=== PATIENT | male | born 1965 | race Caucasian/White ===

== ENCOUNTER 2017-05-12 20:19 | Emergency (ER) | payer SELFPAY ==
[2017-05-12 20:31] VITALS: BP 134/86
[2017-05-12] MEDS ORDERED: LIDOCAINE 2% VISCOUS SOLN 20 ML UDCUP PO ONE (21:40)
--- NOTE | 2017-05-12 21:40 | ER Document Report ---
HPI - HPI Pain Level: 2 Notes: Patient is a 52-year-old male who presents ED complaining of dental pain to #10 , 11, and 121 week. Patient states that he has not noticed any obvious abscess or discharge. He is still eating and drinking without difficulties. Patient states that he has poor dentition, but does have medical coverage now and wants to seek a dentist. Patient states he does not have any trouble swallowing. Denies any headache, fever, head injury, neck pain, URI, sore throat, chest pain, palpitations, syncope, cough, shortness of breath, wheeze, dyspnea, abdominal pain, nausea/vomiting/diarrhea, dysuria, hematuria, or rash. - ROS Notes: REVIEW OF SYSTEMS: CONSTITUTIONAL : Denies fever, chills, or sweats. Denies recent illness. EENT: see hpi CARDIOVASCULAR: Denies chest pain. Denies palpitations or racing or irregular heart beat. Denies ankle edema. RESPIRATORY: Denies cough, cold, or chest congestion. Denies shortness of breath, difficulty breathing, or wheezing. GASTROINTESTINAL: Denies abdominal pain or distention. Denies nausea, vomiting , or diarrhea. GENITOURINARY: Denies difficulty urinating, painful urination, burning, frequency, blood in urine, or discharge. MUSCULOSKELETAL: Denies back or neck pain or stiffness. Denies joint pain or swelling. SKIN: Denies rash, lesions or sores. NEUROLOGICAL: Denies confusion or altered mental status. Denies passing out or loss of consciousness. Denies dizziness or lightheadedness. Denies headache. Denies weakness or paralysis or loss of use of either side. Denies problems with gait or speech. Denies sensory loss, numbness, or tingling. ALL OTHER SYSTEMS REVIEWED AND NEGATIVE. Dictation was performed using [employer] voice recognition software Past Medical History - Social History Smoking Status: Former Smoker Family History: Reviewed & Not Pertinent Patient has suicidal ideation: No Patient has homicidal ideation: No Renal/ Medical History: Denies: Hx Peritoneal Dialysis Vertical Provider Document - CONSTITUTIONAL Agree With Documented VS: Yes Notes: PHYSICAL EXAMINATION: GENERAL: Well-appearing, well-nourished and in no acute distress. HEAD: Atraumatic, normocephalic. EYES: Pupils equal round and reactive to light, extraocular movements intact, sclera anicteric, conjunctiva are normal. ENT: EAC clear b/l. TM's intact b/l without erythema, fluid, or perforation. Nares patent and without discharge. oropharynx clear without exudates. No tonsilar hypertrophy or erythema. Moist mucous membranes. No sinus tenderness. Uvula midline. No palatine shift. No tongue protrusion. No airway compromise. Mouth: Poor dentition. + decay and mild gingivitis. No obvious abscess or discharge noted. No facial swelling. + tenderness to tooth #10, 11, 12. NECK: Normal range of motion, supple without lymphadenopathy. No rigidity/ meningismus. LUNGS: Breath sounds clear to auscultation bilaterally and equal. No wheezes rales or rhonchi. HEART: Regular rate and rhythm without murmurs, rubs, gallops. NEUROLOGICAL: Cranial nerves grossly intact. Normal speech, normal gait. Normal sensory, motor exams PSYCH: Normal mood, normal affect. SKIN: Warm, Dry, normal turgor, no rashes or lesions noted. - INFECTION CONTROL TRAVEL OUTSIDE OF THE [place] IN LAST 30 DAYS: No - RESPIRATORY O2 Sat by Pulse Oximetry: 98 Course - Re-evaluation Re-evalutation: 05/12/17 21:38 She has an afebrile, well-hydrated, 52-year-old male who presents the ED with dental pain, nerve root etiology versus infection. Vitals are stable. PE is otherwise unremarkable. Low suspicion for any meningitis, sepsis, peritonsillar /pharyngeal abscess, respiratory compromise, Watson's, temporal arteritis, or other emergent systemic condition at this time. Patient is aware this condition can change from initial presentation and he needs to monitor symptoms closely. I will send him home with prescription for penicillin to take as directed as well as a list of dentists. Conservative measures otherwise for symptoms. Call to schedule an appointment with a dentist for further evaluation and management. Recheck with your PCM this week as well. Return to the ED with any worsening/concerning symptoms otherwise as reviewed in discharge. Patient is in agreement. - Vital Signs Vital signs: Temp Pulse Resp BP Pulse Ox 98.6 F 70 18 134/86 H 98 05/12/17 20:20 05/12/17 20:20 05/12/17 20:20 05/12/17 20:20 05/12/17 20:20 Discharge - Discharge Clinical Impression: Toothache Condition: Stable Disposition: HOME, SELF-CARE Instructions: Penicillin V K ([facility]), Toothache ([facility]), Dentist Additional Instructions: [place] and floss twice daily Maintain fluid intake Take antibiotics as directed Mouthwash, salt water gargles, peroxide rinse as needed Tylenol/ibuprofen as needed Recheck with PCM this week Call today/tomorrow and schedule an appointment with your dentist for further evaluation Return to the ED with any worsening symptoms and/or development of fever, headache, facial swelling, swelling of lips/tongue/throat, trouble swallowing, drooling, hoarseness, neck pain/stiffness, chest pain, palpitations, syncope, shortness of breath, trouble breathing, abdominal pain, n/v/d, numbness/tingling , or other worsening symptoms that are concerning to you. Prescriptions: Penicillin V Potassium [Penicillin Vk 500 mg Tablet] 500 mg PO BID #20 tablet Forms: Elevated Blood Pressure Referrals: [facility] [Provider Group] - Follow up as needed [facility] [Provider Group] - Follow up as needed
== END 2017-05-12 21:57 | disposition home or self-care (01) ==
LOC: ER 20:19
DX: K02.9 Dental caries, unspecified (principal); K05.10 Chronic gingivitis, plaque induced; K08.89 Other specified disorders of teeth and supporting structures; Z87.891 Personal history of nicotine dependence
CPT/HCPCS: 99282; J3490

== ENCOUNTER → 2019-07-24 | Outpatient (CLI) | payer OTHER ==
[2019-07-24 16:51] LABS: ABSOLUTE LYMPHOCYTES (AUTO) 1.8 10^3/uL (0.5-4.7); ABSOLUTE MONOCYTES (AUTO) 0.5 10^3/uL (0.1-1.4); ABSOLUTE NEUT (AUTO) 4.7 10^3/uL (1.7-8.2); BASOPHILS % (AUTO) 0.6 % (0-2); EOSINOPHILS % (AUTO) 0.5 % (0-6); HEMOGLOBIN 13.8 g/dL (13.5-17.0); LYMPHOCYTES % (AUTO) 24.7 % (13-45); MEAN CORPUSCULAR HEMOGLOBIN 29.8 pg (27.0-33.4); MEAN CORPUSCULAR HGB CONC 34.4 g/dL (32.0-36.0); MEAN CORPUSCULAR VOLUME 87 fl (80-97); MONOCYTES % (AUTO) 7.4 % (3-13); PLATELET COUNT 343 10^3/uL (150-450); RED BLOOD COUNT 4.61 10^6/uL (4.35-5.55); RED CELL DISTRIBUTION WIDTH 12.7 % (11.5-14.0); SEGMENTED NEUTROPHILS % (AUTO) 66.8 % (42-78); TOTAL CELLS COUNTED % (AUTO) 100 %; WHITE BLOOD COUNT 7.1 10^3/uL (4.0-10.5)
--- NOTE | 2019-07-24 16:54 | RADIOLOGY REPORT (SQ) ---
EXAM DESCRIPTION: CT SOFT TISSUE NECK WITH COMPLETED DATE/TIME: 07/24/2019 4:39 pm REASON FOR STUDY: LOCALIZED SWELLING, MASS AND LUMP, NECK (R22.1) R22.1 LOCALIZED SWELLING, MASS AN D LUMP, NECK COMPARISON: None. TECHNIQUE: Post IV contrasted scanning from skull base through lung apices with review of bone, soft tissue and lung windows. Reconstructed coronal and sagittal MPR images reviewed. All images stored on PACS. All CT scanners at this facility use dose modulation, iterative reconstruction, and/or weight based d osing when appropriate to reduce radiation dose to as low as reasonably achievable (ALARA). [facility]: Dose Right [facility]: CareDose [facility]: Dose Right [facility]: Teradose 4D [facility]: Flock CONTRAST TYPE AND DOSE: contrast/concentration: Isovue 350.00 mg/ml; Total Contrast Delivered: 75.0 ml; Total Saline Delivered: 33.9 ml RENAL FUNCTION: Creatinine 0.8 RADIATION DOSE: 20.7 mGy . LIMITATIONS: None. FINDINGS: SKULL BASE: Inferior brain unremarkable MAJOR SALIVARY GLANDS: No solid or cystic masses. No inflammatory changes. LYMPHADENOPATHY: Malignant adenopathy in the right neck at the level of the mandibular angle, level 2 . A 2.7 x 2.3 cm mixed cystic and solid lymph node is present on axial image 40, and a 2.5 x 2.3 cm lymph node is present on the right axial image 47 MUCOSAL MASSES OR ASYMMETRY: Asymmetric fullness and enhancement along the inferior right tonsillar f deborah, were a 1.4 x 1.6 cm mass is suspected on coronal image 54 and axial image 35. LARYNX/CORDS: No abnormal findings. VASCULAR STRUCTURES: The major vessels are patent. LUNG APICES: Clear. BONES: Posterior disc bulging at C5-6, with moderate left foraminal narrowing and mild central canal stenosis THYROID: Normal size. No masses. PARANASAL SINUSES: There is a mucocele in the right maxillary sinus with expansion of the sinus. Macario ypoid soft tissue occludes and widens the right maxillary outlet on coronal image 35. OTHER: No other significant finding. 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
[2019-07-24 17:16] LABS: ALBUMIN 3.7 g/dL (3.5-5.0); ALKALINE PHOSPHATASE 45 U/L (38-126); ANION GAP 6 (5-19); ASPARTATE AMINO TRANSFERASE 18 U/L (17-59); BILIRUBIN,TOTAL 0.4 mg/dL (0.2-1.3); BLOOD UREA NITROGEN 14 mg/dL (7-20); CALCIUM 8.9 mg/dL (8.4-10.2); CARBON DIOXIDE 30 mmol/L (22-30); CHLORIDE 100 mmol/L (98-107); CHOLESTEROL 179.53 mg/dL (0-200); GLUCOSE 64 mg/dL (75-110); POTASSIUM 4.1 mmol/L (3.6-5.0); TOTAL PROTEIN 6.5 g/dL (6.3-8.2); TRIGLYCERIDES 70 mg/dL (<150)
[2019-07-24 17:27] LABS: DIRECT LDL 128 mg/dL (<100)
== END ==
LOC: RAD 15:50
PROVIDERS: ATTEND Internal Medicine
DX: Z00.00 Encounter for general adult medical examination without abnormal findings (principal); R59.1 Generalized enlarged lymph nodes
CPT/HCPCS: 36415; 70491; 80053; 80061; 82565; 84153; 84443; 85025

== ENCOUNTER → 2019-08-07 | Day surgery (SDC) | payer OTHER ==
--- NOTE | 2019-08-07 15:04 | RADIOLOGY REPORT (SQ) ---
EXAM DESCRIPTION: U/S BX SOFT TISS NECK THORX COMPLETED DATE/TIME: 08/07/2019 10:29 am REASON FOR STUDY: LOCALIZED ENLARGED LYMPH NODES COMPARISON: CT neck with contrast from 07/24/2019. TECHNIQUE: The procedure, risks, benefits, and alternatives were discussed with the patient in the p reprocedural area, and all questions were answered. Informed consent was obtained verbally and in wri ting. The patient was then brought to the ultrasound suite, positioned supine on a gurney, and a time-out w as performed. After that, selected grayscale and color Doppler images of the enlarged right-sided le chris IIa lymph node were obtained. Based on review of the images an appropriate access site was select ed on the skin. The area around selected access site was then prepped and draped with 2% chlorhexidine utilizing moses dard sterile technique. After that, the access site was infiltrated with 1% lidocaine and an incisio n was made in the skin with a #11 blade. A 17 gauge coaxial needle was then advanced through the skin incision and into the enlarged lymph node utilizing sonographic guidance. After that, the inner styl et of the coaxial needle was removed and 4 18 gauge core samples were obtained of the lymph node - th e samples were collected and submitted to cytopathology in formalin. The coaxial needle was then removed and selected grayscale and color Doppler images of the lymph node were repeated and reviewed ; the images demonstrated no acute biopsy-related complication. The patient tolerated the procedure well with local anesthesia. At the end of the procedure the patient's condition was unchanged from the preprocedural baseline. Documentation of [id number] time the performing proceduralist spent monitoring the patient: 30 cony chaparro. RADIATION DOSE: None. LIMITATIONS: None. FINDINGS: Integrated into the Technique. IMPRESSION: Successful ultrasound-guided biopsy of an enlarged right-sided level II a lymph node. TECHNICAL DOCUMENTATION: JOB ID: [id number] 2010 [employer]- All Rights Reserved Reading location - IP/workstation name: [email or web address]
== END ==
LOC: RAD 08:58 → EDSTATUS 09:15
PROVIDERS: ATTEND Otolaryngology
DX: C79.2 Secondary malignant neoplasm of skin (principal); R59.0 Localized enlarged lymph nodes; J33.0 Polyp of nasal cavity
CPT/HCPCS: 21550; 70486; 88305

== ENCOUNTER 2019-08-23 08:47 | Day surgery (SDC) | payer OTHER ==
[2019-08-18 11:00] LABS: HEMATOCRIT 40.4 % (37.9-51.0); HEMOGLOBIN 14.3 g/dL (13.5-17.0); MEAN CORPUSCULAR HEMOGLOBIN 30.6 pg (27.0-33.4); MEAN CORPUSCULAR HGB CONC 35.4 g/dL (32.0-36.0); MEAN CORPUSCULAR VOLUME 86 fl (80-97); PLATELET COUNT 324 10^3/uL (150-450); RED BLOOD COUNT 4.67 10^6/uL (4.35-5.55); RED CELL DISTRIBUTION WIDTH 13.2 % (11.5-14.0); WHITE BLOOD COUNT 4.8 10^3/uL (4.0-10.5)
[2019-08-18 11:20] LABS: ANION GAP 7 (5-19); BLOOD UREA NITROGEN 13 mg/dL (7-20); CALCIUM 9.1 mg/dL (8.4-10.2); CARBON DIOXIDE 29 mmol/L (22-30); CHLORIDE 102 mmol/L (98-107); GLUCOSE 82 mg/dL (75-110); POTASSIUM 4.5 mmol/L (3.6-5.0)
--- NOTE | 2019-08-18 18:08 | EKG REPORT ---
SEVERITY:- ABNORMAL ECG - SINUS RHYTHM RBBB AND LAFB : Confirmed by: Joseph Culver MD 18-Aug-2019 18:08:21
[~2019-08-23 08:47] MED LIST: AMPICILLIN SODIUM 2 GM in NORMAL SALINE 100 ML IV PRN; LACTATED RINGERS 1000 ML IV PRN; LIDOCAINE 0.5% INJ-PF (5 MG/ML) 50 ML SDV SUBCUT PRN
[2019-08-23] MEDS ORDERED: OXYMETAZOLINE HCL 0.05% NASAL SPRAY 15 ML BOTTLE ONE ×2 (10:40→13:14)
[2019-08-23] MEDS ORDERED: EPINEPHRINE INJ/PF 1 MG/1 ML AMPULE ONE (10:40)
[2019-08-23] MEDS ORDERED: TRIAMCINOLONE ACETONIDE INJ 40 MG/1 ML VIAL ONE (10:40)
[2019-08-23] MEDS ORDERED: COCAINE HCL 4% TOPICAL SOLN 4 ML ONE (10:40)
[2019-08-23] MEDS ORDERED: LIDOCAINE 2%/EPINEPHRINE INJ 1.7 ML CARTRIDGE ONE (10:40)
[2019-08-23] MEDS ORDERED: FENTANYL CITRATE INJ/PF 100 MCG/2 ML AMPUL ONE (11:39)
[2019-08-23] MEDS ORDERED: EPHEDRINE SULFATE INJ 50 MG/1 ML AMPULE ONE (11:55)
[2019-08-23] MEDS ORDERED: DIPHENHYDRAMINE HCL 50 MG/ML VIAL IV PRN (12:03)
[2019-08-23] MEDS ORDERED: PROMETHAZINE HCL INJ 25 MG/1 ML VIAL IV PRN ×2 (12:03)
[2019-08-23] MEDS ORDERED: FENTANYL CITRATE INJ/PF 100 MCG/2 ML AMPUL IV PRN ×3 (12:03)
[2019-08-23] MEDS ORDERED: MEPERIDINE HCL/PF INJ 25 MG/1 ML DISP.SYRIN IV PRN (12:03)
[2019-08-23] MEDS ORDERED: OXYCODONE-ACETAMINOPHEN 5-325 MG TABLET PO PRN ×2 (12:03)
[2019-08-23] MEDS ORDERED: ACETAMINOPHEN 1,000 MG/100 ML RTUPB IV ONE ×2 (14:12→15:30)
[2019-08-23] MEDS: FENTANYL CITRATE INJ/PF 100 MCG/2 ML AMPUL ONE ×2 (14:15→14:25)
[2019-08-23] MEDS ORDERED: LIDOCAINE 2% INJ-PF (20 MG/ML) 2 ML AMPUL ONE (14:34)
[2019-08-23] MEDS ORDERED: DEXAMETHASONE SOD PHOSPHATE INJ 4 MG/1 ML VIAL ONE (14:34)
[2019-08-23] MEDS ORDERED: NEOSTIGMINE METHYLSULFATE 10 MG/10 ML VIAL ONE (14:34)
[2019-08-23] MEDS ORDERED: ONDANSETRON HCL INJ/PF 4 MG/2 ML SDV ONE (14:34)
[2019-08-23] MEDS ORDERED: GLYCOPYRROLATE 1 MG/5 ML VIAL ONE (14:34)
[2019-08-23] MEDS ORDERED: SUCCINYLCHOLINE CHLORIDE INJ 200 MG/10 ML VIAL ONE (14:34)
[2019-08-23] MEDS ORDERED: ROCURONIUM BROMIDE INJ 50 MG/5 ML VIAL IV ONE (14:34)
--- NOTE | 2019-08-23 14:34 | Operative Report ---
[facility]ative Report[facility] Oper[facility] Report: Date: 23 August 2019 History: 54-year-old male with a right neck mass. Physical exam revealed an i ntranasal mass on the right side and a right tonsillar mass. The intranasal mass appears to be consistent with nasal polyposis. Patient underwent a fine- needle aspiration biopsy of the right neck mass, which was consistent with squamous cell carcinoma. HPV was positive. CT scan confirmed a right tonsillar mass along with the metastatic neck disease and a right intranasal mass. Patient presents today for biopsy of the right tonsil mass and right intranasal mass. Informed consent was obtained for the patient Pre-operative diagnosis: 1. 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 Right intranasal mass consistent with nasal polyposis 4. Right tonsillar mass Post operative diagnosis: Same as above Procedure: 1. Right maxillary antrostomy 2. Right frontal sinusotomy 3. Nasal polypectomy 4. Direct laryngoscopy 5. Right tonsillectomy/biopsy right tonsil mass Surgeon: Sukhi Rutledge MD, FACS, [facility] Anesthesia: General via endotracheal intubation Procedure: After receiving informed consent, the patient was brought to the operating room and placed supine on the operating table. After successful induction and intubation by anesthesia cottonoids saturated with 4% cocaine placed into each nasal cavity. After approximately 5 minutes the nasal septum along with the inferior turbinates and the right nasal polyps were injected with 2% lidocaine with 100,000 epinephrine. Cottonoids were replaced into each nasal cavity. Attention was directed towards the direct laryngoscopy and tonsil biopsy portion of the procedure. Patient was turned 90 degrees and the patient was placed into a sniffing position. The upper maxilla was protected with a moist sponge. Rigid laryngoscope was inserted through the oral cavity down to the larynx the true vocal cords appeared normal. A mass was noted the right tonsillar area extending inferiorly towards the base of tongue. The laryngoscope was removed and a McIvor mouthgag inserted atraumatically into the oral cavity. The right tonsillar mass/tonsil was grasped with a tonsil tenaculum and using a Bovie electrocautery was removed along with the tonsil. Hemostasis obtained using suction Bovie electrocautery. The oral cavity/oropharynx was irrigated with normal saline and no bleeding was noted. The McIvor was then removed atraumatically from the patient. Patient was then turned towards anesthesia and the endoscopic sinus surgery portion was started. The image guidance system was calibrated to the patient and found to be working appropriately. The eyes were visualized during the entire procedure. The previously placed cottonoids were removed from the right nasal cavity and a rigid endoscope was inserted into the right nasal cavity. The lateral nasal wall was inflamed and edematous with obvious polyps and polypoid mucosa. Using a [place] elevator the middle turbinate was medialized. The polyps were grasped with Blakesley forceps and removed and sent for histopathologic analysis. The polypoid mucosa was removed using a microdebrider. An uncinectomy was performed by first placing a seeker into the infundibulum and drawing the uncinate process anteriorly. A sickle knife was used to make an incision in the uncinate laterally. The microdebrider was then used to perform the uncinectomy. An olive-tipped sucker was placed into the maxillary sinus through the natural os. The backbiters were used to widen the antrostomy in an anterior direction. Then the microdebrider was used to widen the antrostomy posteriorly and inferiorly. A polypoid material was noted within the maxillary sinus and this was removed for biopsy. The maxillary sinus was then irrigated with copious amounts of normal saline. A microdebrider was then used to remove polypoid tissue in the nasal frontal area performing a frontal sinusotomy. The outflow tracts of the frontal sinus were identified. An absorbable pack was then placed into the middle meatus and infiltrated with Kenalog 40. A rigid endoscope was then inserted into the left nasal cavity and the middle meatus was found to be normal. No evidence of polyps. The patient tolerated the procedure well without any complications. The patient was then given back to anesthesia who successfully extubated the patient without any complications. Estimated blood loss: 20 mL Fluids: 1000 mL The patient was then transported to the Post Anesthesia Care Unit in stable condition with spontaneous respiration. No complication.
[2019-08-23] MEDS ORDERED: HYDROCOD/ACETAMIN 7.5-325 MG/15 ML ORAL SOLN UDCUP PO PRN ×2 (15:10→15:31)
[2019-08-23] MEDS ORDERED: ONDANSETRON HCL INJ/PF 4 MG/2 ML SDV IV PRN (15:11)
[2019-08-23] MEDS ORDERED: HYDROCOD/ACETAMIN 7.5-325 MG/15 ML ORAL SOLN UDCUP ONE (15:18)
[2019-08-23 17:09] VITALS: BP 124/81
== END 2019-08-23 16:20 | disposition home or self-care (01) ==
LOC: OROUT 08:47
PROVIDERS: ATTEND Otolaryngology
DX: C09.9 Malignant neoplasm of tonsil, unspecified (principal); D23.39 Other benign neoplasm of skin of other parts of face; R59.0 Localized enlarged lymph nodes; J33.0 Polyp of nasal cavity
CPT/HCPCS: 93005; 36415; 85027; 80048; 88304 ×2; 88305 ×2; 93010; 00160; 42826; 31276; 31525; 31267; C1751; J0290; J3490 ×6; J1100; J0171; J3010; J2710; J0330; J2405; J3301; J7050; J0131; 160